=== PATIENT | female | born 1975 | race Caucasian/White ===

== ENCOUNTER 2017-12-05 14:56 | Emergency (ER) | payer OTHER, SELFPAY ==
[2017-12-05 15:04] VITALS: BP 140/80; PULSE 80; RESP 16; TEMP 37; O2SAT 99
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
[2017-12-05] MEDS: Ibuprofen 600 MG TAB PO (15:36)
[2017-12-05] MEDS: Acetaminophen 500 MG TAB 1000 MG PO (15:36)
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
== END 2017-12-05 16:42 | disposition home or self-care (01) ==
PROVIDERS: Emergency Provider Physician Assistant
DX: S42.001A Fracture of unspecified part of right clavicle, initial encounter for closed fracture (principal); V18.0XXA Pedal cycle driver injured in noncollision transport accident in nontraffic accident, initial encounter; Y93.55 Activity, bike riding
CPT/HCPCS: 99284; 73000; 73130; L3650